=== PATIENT | female | born 1940 | race African-American/Black ===

== ENCOUNTER → 2019-02-28 | Outpatient (CLI) | payer MEDICARE ==
[2019-02-28 12:59] LABS: HEMATOCRIT 41 % (35-52); HEMOGLOBIN 13.1 G/DL (11.5-16.0); MEAN CORPUSCULAR HEMOGLOBIN 33 PG (25-34); MEAN CORPUSCULAR HGB CONC 32 G/DL (32-36); MEAN CORPUSCULAR VOLUME 103 FL (80-99); WHITE BLOOD COUNT 3.5 10^3/uL (4.3-11.0)
[2019-02-28 13:00] LABS: BASOPHILS % (AUTO) 1 % (0-10); EOSINOPHILS # (AUTO) 0.2 10^3/uL (0.0-0.3); EOSINOPHILS % (AUTO) 5 % (0-10); LYMPHOCYTES # (AUTO) 1.1 X 10^3 (1.0-4.0); LYMPHOCYTES % (AUTO) 30 % (12-44); MEAN PLATELET VOLUME 10.6 FL (7.4-10.4); MONOCYTES # (AUTO) 0.5 X 10^3 (0.0-1.0); MONOCYTES % (AUTO) 13 % (0-12); NEUTROPHILS # (AUTO) 1.7 X 10^3 (1.8-7.8); NEUTROPHILS % (AUTO) 51 % (42-75); PLATELET COUNT 180 10^3/uL (130-400); RED CELL DISTRIBUTION WIDTH 15.5 % (10.0-14.5)
[2019-02-28 14:28] LABS: CREATININE SERUM 1.64 MG/DL (0.60-1.30); POTASSIUM 4.4 MMOL/L (3.6-5.0)
[2019-02-28 14:29] LABS: ALBUMIN 4.2 GM/DL (3.2-4.5); BILIRUBIN,TOTAL 0.9 MG/DL (0.1-1.0); CALCIUM 9.1 MG/DL (8.5-10.1); TOTAL PROTEIN 7.2 GM/DL (6.4-8.2)
[2019-03-02 17:19] LABS: IMMUNOFIX PATH REPORT NUMBER Complete (Complete)
== END ==
LOC: LAB FS 12:01
PROVIDERS: ATTEND Internal Medicine Hematology & Oncology
DX: C90.01 Multiple myeloma in remission (principal)
CPT/HCPCS: 36415; 80053; 83615; 83883; 84155; 84165; 85025; 86334

== ENCOUNTER → 2019-08-16 | Outpatient (CLI) | payer MEDICARE, OTHER ==
[2019-08-16 12:19] LABS: HEMATOCRIT 38 % (35-52); HEMOGLOBIN 12.3 G/DL (11.5-16.0); MEAN CORPUSCULAR HEMOGLOBIN 34 PG (25-34); WHITE BLOOD COUNT 2.9 10^3/uL (4.3-11.0)
[2019-08-16 12:20] LABS: MEAN CORPUSCULAR HGB CONC 33 G/DL (32-36); MEAN CORPUSCULAR VOLUME 103 FL (80-99); PLATELET COUNT 201 10^3/uL (130-400); RED CELL DISTRIBUTION WIDTH 15.7 % (10.0-14.5)
[2019-08-16 12:21] LABS: BASOPHILS % (AUTO) 1 % (0-10); EOSINOPHILS # (AUTO) 0.1 10^3/uL (0.0-0.3); EOSINOPHILS % (AUTO) 4 % (0-10); LYMPHOCYTES % (AUTO) 33 % (12-44); MEAN PLATELET VOLUME 10.4 FL (7.4-10.4); MONOCYTES # (AUTO) 0.4 X 10^3 (0.0-1.0); MONOCYTES % (AUTO) 15 % (0-12); NEUTROPHILS # (AUTO) 1.4 X 10^3 (1.8-7.8); NEUTROPHILS % (AUTO) 47 % (42-75)
[2019-08-16 13:32] LABS: BILIRUBIN,TOTAL 0.5 MG/DL (0.1-1.0); CALCIUM 8.7 MG/DL (8.5-10.1); CREATININE SERUM 1.63 MG/DL (0.60-1.30); POTASSIUM 4.7 MMOL/L (3.6-5.0)
[2019-08-16 13:33] LABS: ALBUMIN 3.9 GM/DL (3.2-4.5); TOTAL PROTEIN 6.5 GM/DL (6.4-8.2)
== END ==
LOC: LAB FS 10:31
PROVIDERS: ATTEND Internal Medicine Hematology & Oncology
DX: Z01.89 Encounter for other specified special examinations (principal)
CPT/HCPCS: 36415; 80053; 83883; 84155; 84165; 85025; 86334

== ENCOUNTER → 2019-11-15 | Outpatient (CLI) | payer MEDICARE, OTHER ==
[2019-11-15 10:53] LABS: BASOPHILS % (AUTO) 1 % (0-10); HEMATOCRIT 38 % (35-52); HEMOGLOBIN 12.5 G/DL (11.5-16.0); LYMPHOCYTES % (AUTO) 24 % (12-44); MEAN CORPUSCULAR HEMOGLOBIN 34 PG (25-34); MEAN CORPUSCULAR HGB CONC 33 G/DL (32-36); MEAN CORPUSCULAR VOLUME 102 FL (80-99); MEAN PLATELET VOLUME 10.8 FL (7.4-10.4); MONOCYTES % (AUTO) 15 % (0-12); NEUTROPHILS % (AUTO) 57 % (42-75); PLATELET COUNT 158 10^3/uL (130-400); RED CELL DISTRIBUTION WIDTH 15.6 % (10.0-14.5)
[2019-11-15 10:54] LABS: EOSINOPHILS # (AUTO) 0.1 10^3/uL (0.0-0.3); EOSINOPHILS % (AUTO) 3 % (0-10); MONOCYTES # (AUTO) 0.6 X 10^3 (0.0-1.0); NEUTROPHILS # (AUTO) 2.3 X 10^3 (1.8-7.8)
[2019-11-15 11:29] LABS: POTASSIUM 4.1 MMOL/L (3.6-5.0)
[2019-11-15 11:30] LABS: BILIRUBIN,TOTAL 0.6 MG/DL (0.1-1.0); CREATININE SERUM 1.6 MG/DL (0.60-1.30); TOTAL PROTEIN 6.6 GM/DL (6.4-8.2)
== END ==
LOC: LAB FS 09:18
PROVIDERS: ATTEND Internal Medicine Hematology & Oncology
DX: Z01.89 Encounter for other specified special examinations (principal)
CPT/HCPCS: 36415; 80053; 83615; 83883; 84155; 84165; 85025; 86334

== ENCOUNTER → 2020-07-30 | Outpatient (CLI) | payer MEDICARE, OTHER ==
--- NOTE | 2020-07-30 16:33 | Diagnostic Imaging Report ---
INDICATION: Fall with right hip pain. TIME OF EXAM: 02:54 p.m. TECHNIQUE: Two views of the right hip were obtained. FINDINGS: Femoroacetabular alignment is normal. Joint spaces are fairly well maintained. No fractures are seen. Right-sided rami are intact. IMPRESSION: No acute bony abnormality is detected. Dictated by: Dictated on workstation # [id number]
== END ==
LOC: RAD FS 14:32
PROVIDERS: ATTEND Nurse Practitioner Family
DX: M25.551 Pain in right hip (principal)
CPT/HCPCS: 73502

== ENCOUNTER → 2021-03-31 | Outpatient (CLI) | payer MEDICARE, OTHER ==
[2021-03-31 14:58] LABS: WHITE BLOOD COUNT 3.1 10^3/uL (4.3-11.0)
[2021-03-31 14:59] LABS: BASOPHILS % (AUTO) 1 % (0-10); EOSINOPHILS % (AUTO) 6 % (0-10); HEMATOCRIT 38 % (35-52); HEMOGLOBIN 12.4 g/dL (11.5-16.0); LYMPHOCYTES % (AUTO) 26 % (12-44); MEAN CORPUSCULAR HEMOGLOBIN 33 pg (25-34); MEAN CORPUSCULAR HGB CONC 32 g/dL (32-36); MEAN CORPUSCULAR VOLUME 102 fL (80-99); MEAN PLATELET VOLUME 10.8 fL (9.0-12.2); MONOCYTES % (AUTO) 8 % (0-12); NEUTROPHILS % (AUTO) 60 % (42-75); PLATELET COUNT 219 10^3/uL (130-400)
[2021-03-31 15:00] LABS: EOSINOPHILS # (AUTO) 0.2 10^3/uL (0.0-0.3); LYMPHOCYTES # (AUTO) 0.8 X 10^3 (1.0-4.0); MONOCYTES # (AUTO) 0.2 X 10^3 (0.0-1.0); NEUTROPHILS # (AUTO) 1.8 X 10^3 (1.8-7.8)
[2021-03-31 15:16] LABS: ALBUMIN 4.2 GM/DL (3.2-4.5); BILIRUBIN,TOTAL 0.5 MG/DL (0.1-1.0); CALCIUM 8.9 MG/DL (8.5-10.1); CREATININE SERUM 1.66 MG/DL (0.60-1.30); TOTAL PROTEIN 6.9 GM/DL (6.4-8.2)
== END ==
LOC: LAB FS 12:59
PROVIDERS: ATTEND Internal Medicine Hematology & Oncology
DX: C90.01 Multiple myeloma in remission (principal)
CPT/HCPCS: 36415; 80053; 83615; 83883; 84155; 84165; 85025; 86334

== ENCOUNTER 2021-04-06 08:40 | Emergency (ER) | payer MEDICARE, OTHER ==
[~2021-04-06] VITALS: Ht 154.9 cm; Wt 63.9 kg
--- NOTE | 2021-04-06 09:05 | ED Cough/URI ---
General Chief Complaint: Cough/Cold/Flu Symptoms Stated Complaint: COUGH Nursing Triage Note: PATIENT PRESENTS TO THE ED WITH C/O COUGH AND RUNNING NOSE. SHE REPORTS HER SYMPTOMS STARTED 2 DAYS AGO. PATIENT DENIES FEVER, SHORTNESS OF BREATH, DIARRHEA, NAUSEA, OR VOMITING. Source: patient History of Present Illness Date Seen by Provider: Apr 06, 2021 Time Seen by Provider: 08:42 Initial Comments 80 yo female presenting to the ED with complaint of runny nose and cough productive of clear colored sputum. She denies fever, chills, shortness of breath, nausea, vomiting, diarrhea. She does not think she has been exposed to any ill contacts. She does have Multiple Myeloma and is taking medicine for that under direction of Oncologist from [facility]. She denies swelling in her legs. She has had no burning with urination. She denies headache, chest pain, abdominal pain. She thinks her symptoms started on Wednesday. Severity/Quality: mild, productive cough (clear phlegm) Prior Episodes/Possible Cause: unknown cause Associated Symptoms: cough, nasal congestion, nasal drainage Allergies and Home Medications Allergies Coded Allergies: No Known Drug Allergies (Unverified , 04/06/21) Patient Home Medication List Home Medication List Reviewed: Yes Fluticasone Propionate (Fluticasone Propionate) 16 Gm Emmett.susp, 1 SPRAY NSEACH BID Prescribed by: MARILEE MARROQUIN on 04/06/21 1008 Review of Systems Review of Systems Constitutional: No chills, No fever, No malaise EENTM: nose congestion; No ear discharge, No ear pain, No blurred vision, No hoarseness, No epistaxis Respiratory: see HPI Cardiovascular: see HPI; No chest pain, No edema, No palpitations Gastrointestinal: see HPI; No abdominal pain, No diarrhea, No nausea, No vomiting Genitourinary: No dysuria Musculoskeletal: no symptoms reported Skin: no symptoms reported Psychiatric/Neurological: Denies Headache Past Tyhcdwu-Ojxhhk-Iqmqfw Hx Patient Social History Tobacco Use?: No Use of E-Cig and/or Vaping dev: No Substance use?: No Alcohol Use?: No Pt feels they are or have been: No Immunizations Up To Date First/Initial COVID19 Vaccinat: SEPTEMBER 2020 Second COVID19 Vaccination Ruddy: SEPTEMBER 2020 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 oz. kg; 26.00 BMI Method: General Appearance: WD/WN, no apparent distress HEENT: PERRL/EOMI, pharynx normal Neck: non-tender, full range of motion, supple, normal inspection Respiratory: chest non-tender, lungs clear, normal breath sounds, no respiratory distress, no accessory muscle use Cardiovascular: normal peripheral pulses, regular rate, rhythm Gastrointestinal: normal bowel sounds, non tender, soft, no pulsatile mass Extremities: normal range of motion, non-tender, normal capillary refill Neurologic/Psychiatric: alert, oriented x 3 Skin: normal color, warm/dry Focused Exam Lactate Level 04/06/21 08:55: Lactic Acid Level 1.67 Lactic Acid Level Laboratory Tests Test 04/06/21 08:55 Lactic Acid Level 1.67 MMOL/L (0.50-2.00) Progress/Results/Core Measures Suspected Sepsis SIRS Temperature: Pulse: 74 Respiratory Rate: 18 Laboratory Tests 04/06/21 08:55: White Blood Count 4.5 Blood Pressure 135 /66 Mean: 89 04/06/21 08:55: Lactic Acid Level 1.67 Laboratory Tests 04/06/21 08:55: Creatinine 1.40H, INR Comment 1.0, Platelet Count 172, Total Bilirubin 0.8 Results/Orders Lab Results Laboratory Tests Test 04/06/21 08:55 04/06/21 09:02 Range/Units White Blood Count 4.5 4.3-11.0 10^3/uL Red Blood Count 3.77 L 3.80-5.11 10^6/uL Hemoglobin 12.5 11.5-16.0 g/dL Hematocrit 38 35-52 % Mean Corpuscular Volume 100 H 80-99 fL Mean Corpuscular Hemoglobin 33 25-34 pg Mean Corpuscular Hemoglobin Concent 33 32-36 g/dL Red Cell Distribution Width 15.5 H 10.0-14.5 % Platelet Count 172 130-400 10^3/uL Mean Platelet Volume 10.4 9.0-12.2 fL Immature Granulocyte % (Auto) 0 % Neutrophils (%) (Auto) 73 42-75 % Lymphocytes (%) (Auto) 12 12-44 % Monocytes (%) (Auto) 13 H 0-12 % Eosinophils (%) (Auto) 1 0-10 % Basophils (%) (Auto) 1 0-10 % Neutrophils # (Auto) 3.3 1.8-7.8 X 10^3 Lymphocytes # (Auto) 0.5 L 1.0-4.0 X 10^3 Monocytes # (Auto) 0.6 0.0-1.0 X 10^3 Eosinophils # (Auto) 0.1 0.0-0.3 10^3/uL Basophils # (Auto) 0.0 0.0-0.1 10^3/uL Immature Granulocyte # (Auto) 0.0 0.0-0.1 10^3/uL Prothrombin Time 13.1 12.2-14.7 SEC INR Comment 1.0 0.8-1.4 Activated Partial Thromboplast Time 31 24-35 SEC Sodium Level 142 135-145 MMOL/L Potassium Level 3.8 3.6-5.0 MMOL/L Chloride Level 100 98-107 MMOL/L Carbon Dioxide Level 29 21-32 MMOL/L Anion Gap 13 5-14 MMOL/L Blood Urea Nitrogen 11 7-18 MG/DL Creatinine 1.40 H 0.60-1.30 MG/DL Estimat Glomerular Filtration Rate 44 BUN/Creatinine Ratio 8 Glucose Level 109 H 70-105 MG/DL Lactic Acid Level 1.67 0.50-2.00 MMOL/L Calcium Level 8.8 8.5-10.1 MG/DL Corrected Calcium 8.8 8.5-10.1 MG/DL Total Bilirubin 0.8 0.1-1.0 MG/DL Aspartate Amino Transf (AST/SGOT) 16 5-34 U/L Alanine Aminotransferase (ALT/SGPT) 10 0-55 U/L Alkaline Phosphatase 100 40-136 U/L Troponin I < 0.30 <0.30 NG/ML C-Reactive Protein 4.82 H <0.50 MG/DL Total Protein 6.9 6.4-8.2 GM/DL Albumin 4.0 3.2-4.5 GM/DL Influenza Type A Antigen NEGATIVE NEGATIVE Influenza Type B Antigen NEGATIVE NEGATIVE My Orders Orders - MARILEE MARROQUIN MD Monitor-Rhythm Ecg Trace Only (04/06/21 08:55) Ed Iv/Invasive Line Start (04/06/21 08:55) Cbc With Automated Diff (04/06/21 08:55) Comprehensive Metabolic Panel (04/06/21 08:55) Crp Fs (04/06/21 08:55) Troponin I Fs (04/06/21 08:55) Protime With Inr (04/06/21 08:55) Partial Thromboplastin Time (04/06/21 08:55) Ekg Tracing (04/06/21 08:55) Blood Culture (04/06/21 08:55) Influenza A & B Antigens (04/06/21 08:55) Coronavirus Sars-Cov-2 So 2019 (04/06/21 08:55) Lactic Acid Analyzer (04/06/21 08:55) Chest 1 View Ap/Pa Only (04/06/21 08:58) Vital Signs/I&O 04/06/21 04/06/21 08:40 10:37 Temp 36.4 36.4 Pulse 74 66 Resp 18 18 B/P (MAP) 135/66 (89) 127/62 Pulse Ox 95 93 O2 Delivery Room Air Room Air Capillary Refill : Less Than 3 Seconds Blood Pressure Mean: 89 Progress Note #1: Progress Note Pt states she really did not want to be here but came in because she was worried she might have COVID. She is requesting testing to check for infection from COVID. Will check basic labs, blood cultures, lactic acid, chest xray, influenza and Covid. Advised pt that we do not have rapid COVID test in the ED but can send swab off to the lab to be run. The other labs and Influenza will be done today and know results in about an hour. Differential diagnosis includes COVID, Influenza, Common Cold, pneumonia, allergies, sinusitis Progress Note #2: Time: 09:28 Progress Note CBC appears stable from recent labs earlier this week. She has no acute significant abnormality on ECG or CXR. Her Influenza swab is negative. Awaiting CMP. Progress Note #3: Time: 09:52 Progress Note Chemistry stable with improved Cr from 03/31. Counseled pt on symptomatic treatment and that she would have COVID results usually within a day. Try plain Mucinex or plain Robitussin for cough, Nasal steroid spray, antihistamine such as claritin or zyrtec for congestion. Check with pcp or oncology for further concerns. ECG Initial ECG Impression Date: Apr 06, 2021 Initial ECG Impression Time: 09:02 Initial ECG Rate: 70 Initial ECG Rhythm: Normal Sinus Initial ECG Comparisson: No Previous ECG Available Comment Normal sinus rhythm with a heart rate of 70 bpm. DC interval [address] elevation. QT interval 411 ms with a QTc interval 444 ms. There is no prior tracing available for comparison. Diagnostic Imaging Diagonstic Imaging: Xray Plain Films/CT/US/NM/MRI: chest Comments NAME: RHONA STERN [facility] REC#: [id number] PT STATUS: REG ER : 1940 PHYSICIAN: MARILEE MARROQUIN MD ADMIT DATE: 04/06/21/ER FS Draft Date of Exam:04/06/21 CHEST 1 VIEW AP/PA ONLY Indication: Dyspnea, cough and congestion. Comparison: 08/23/2009. Discussion: Single portable upright view of the chest was obtained. Left-sided port is stable. Borderline cardiomegaly is stable. No consolidation, pleural fluid, or pneumothorax. No osseous abnormality. Impression: 1. No acute cardiopulmonary process. Dictated on workstation # [id number] Dict: 04/06/21915 Trans: 04/06/21 0917 CV [id number] Interpreted by: MARIAMA MORRIS MD Electronically signed by: Reviewed: Reviewed by Me Departure Impression Primary Impression: Upper respiratory infection with cough and congestion Additional Impression: Person under investigation for COVID-19 Disposition: HOME, SELF-CARE Condition: Stable Departure-Patient Inst. Decision time for Depature: 10:00 Referrals: HUGH DEMPSEY APRN (PCP) Primary Care Physician [facility] (Family) Primary Care Physician Patient Instructions: COVID-19 After You Have Been Vaccinated, Upper Respiratory Infection ED, Cough, Adult ED Add. Discharge Instructions: You should self quarantine and isolate until you know about your test results for COVID. These should be back within 24-48 hours. Try nasal steroid spray for congestion and drainage. Plain Mucinex OR Plain Robitussin for cough and congestion. You could try taking Claritin or Zyrtec for an antihistamine to help with congestion. Check back with your provider or oncologist for further concerns. All discharge instructions reviewed with patient and/or family. Voiced understanding. Scripts Fluticasone Propionate (Fluticasone Propionate) 16 Gm Emmett.susp 1 SPRAY NSEACH BID for 14 Days, #1 EA 0 Refills Prov: MARILEE MARROQUIN MD 04/06/21 MARILEE MARROQUIN MD Apr 06, 2021 09:05
[2021-04-06 09:08] LABS: BASOPHILS % (AUTO) 1 % (0-10); EOSINOPHILS # (AUTO) 0.1 10^3/uL (0.0-0.3); EOSINOPHILS % (AUTO) 1 % (0-10); HEMATOCRIT 38 % (35-52); HEMOGLOBIN 12.5 g/dL (11.5-16.0); LYMPHOCYTES # (AUTO) 0.5 X 10^3 (1.0-4.0); LYMPHOCYTES % (AUTO) 12 % (12-44); MEAN CORPUSCULAR HEMOGLOBIN 33 pg (25-34); MEAN CORPUSCULAR HGB CONC 33 g/dL (32-36); MEAN CORPUSCULAR VOLUME 100 fL (80-99); MEAN PLATELET VOLUME 10.4 fL (9.0-12.2); MONOCYTES # (AUTO) 0.6 X 10^3 (0.0-1.0); MONOCYTES % (AUTO) 13 % (0-12); NEUTROPHILS # (AUTO) 3.3 X 10^3 (1.8-7.8); NEUTROPHILS % (AUTO) 73 % (42-75); PLATELET COUNT 172 10^3/uL (130-400); WHITE BLOOD COUNT 4.5 10^3/uL (4.3-11.0)
--- NOTE | 2021-04-06 09:17 | Diagnostic Imaging Report ---
Indication: Dyspnea, cough and congestion. Comparison: 08/23/2009. Discussion: Single portable upright view of the chest was obtained. Left-sided port is stable. Borderline cardiomegaly is stable. No consolidation, pleural fluid, or pneumothorax. No osseous abnormality. Impression: 1. No acute cardiopulmonary process. Dictated by: Dictated on workstation # [id number]
[2021-04-06 09:21] LABS: PROTHROMBIN TIME PATIENT 13.1 SEC (12.2-14.7)
[2021-04-06 09:36] LABS: ALANINE AMINOTRANSFERASE 10 U/L (0-55); ALKALINE PHOSPHATASE 100 U/L (40-136); BILIRUBIN,TOTAL 0.8 MG/DL (0.1-1.0); BUN/CREATININE RATIO 8; CALCIUM 8.8 MG/DL (8.5-10.1); CARBON DIOXIDE 29 MMOL/L (21-32); CHLORIDE 100 MMOL/L (98-107); GFR ESTIMATED 44; GLUCOSE 109 MG/DL (70-105); POTASSIUM 3.8 MMOL/L (3.6-5.0); SODIUM 142 MMOL/L (135-145)
[2021-04-06 09:37] LABS: TOTAL PROTEIN 6.9 GM/DL (6.4-8.2)
[2021-04-06] MEDS ORDERED: FLUT16SP22 NSEACH (10:08)
[2021-04-06 10:37] VITALS: BP 127/62
== END 2021-04-06 10:15 | disposition home or self-care (01) ==
LOC: EDUNIT# 08:40 → ER FS 08:41
DX: J06.9 Acute upper respiratory infection, unspecified (principal); R05.9 Cough, unspecified; R09.81 Nasal congestion; Z20.822 Contact with and (suspected) exposure to COVID-19
CPT/HCPCS: 36415; 71045; 80053; 83605; 84484; 85025; 85610; 85730; 86141; 87040; 87635; 87804; 93005

== ENCOUNTER 2022-03-17 18:58 | Emergency (ER) | payer MEDICARE, OTHER ==
[~2022-03-17] VITALS: Ht 154.9 cm; Wt 61.2 kg
[~2022-03-17 18:58] MED LIST: FLUT16SP22 NSEACH
--- NOTE | 2022-03-17 20:06 | Diagnostic Imaging Report ---
INDICATION: Fall with head and neck pain. TECHNIQUE: Multiple contiguous axial images were obtained through the brain and cervical spine without the use of intravenous contrast. Sagittal and coronal reformations through the cervical spine were then performed. Auto Exposure Controls were utilized during the CT exam to meet ALARA standards for radiation dose reduction. There is no prior cervical spine or head CT for comparison. CT brain findings: There were no extra-axial fluid collections. No intracranial hemorrhage. No intracranial mass or mass effect. No midline shift. The ventricles are normal in size and position. There were no focal parenchymal abnormalities in the brain. Calvarial windows are unremarkable. CT cervical spine findings: There is no evidence of cervical spine fracture. There is no subluxation or malalignment. There is diffuse facet degenerative change. There is disc space narrowing with osteophyte formation at essentially all levels. IMPRESSION: CT brain was unremarkable. CT cervical spine shows extensive degenerative changes with no acute fracture or subluxation. Dictated by: Dictated on workstation # [id number]
--- NOTE | 2022-03-17 20:08 | Diagnostic Imaging Report ---
INDICATION: Fall with pain in chest. TECHNIQUE: Multiple contiguous axial images were obtained through the chest without the use of intravenous contrast. Auto Exposure Controls were utilized during the CT exam to meet ALARA standards for radiation dose reduction. There is no prior chest CT for comparison. Port-A-Cath is seen over the left chest wall with its catheter tip in the low SVC. There are no enlarged mediastinal or hilar nodes. There are no enlarged axillary nodes or chest wall masses. There is no pleural or pericardial fluid. Visualized portions of the upper abdomen demonstrate multiple right renal cysts. There is no pneumothorax. Lung parenchymal windows demonstrate a right upper lobe pulmonary nodule measuring about 6 mm, best seen on image 60 of series 5. There is no pulmonary consolidation or contusion. There is some linear scarring in the right base. Bony windows in the chest show no overt acute abnormality. There are old compression deformities in the thoracic spine. IMPRESSION: No pulmonary parenchymal infiltrate or contusion. No pneumothorax or pleural fluid. Port-A-Cath in place as above. There is a 6 cm pulmonary nodule in the right upper lobe as described above, we do not have previous imaging. Suggest a follow-up study in 3-6 months for further evaluation. Dictated by: Dictated on workstation # [id number]
[2022-03-17 20:09] LABS: HEMATOCRIT 37 % (35-52); HEMOGLOBIN 12.5 g/dL (11.5-16.0); MEAN CORPUSCULAR HEMOGLOBIN 33 pg (25-34); MEAN CORPUSCULAR HGB CONC 33 g/dL (32-36); MEAN CORPUSCULAR VOLUME 97 fL (80-99)
[2022-03-17 20:10] LABS: BASOPHILS % (AUTO) 1 % (0-10); EOSINOPHILS # (AUTO) 0.1 10^3/uL (0.0-0.3); EOSINOPHILS % (AUTO) 2 % (0-10); LYMPHOCYTES # (AUTO) 1.3 X 10^3 (1.0-4.0); LYMPHOCYTES % (AUTO) 27 % (12-44); MEAN PLATELET VOLUME 10.4 fL (9.0-12.2); MONOCYTES # (AUTO) 0.6 X 10^3 (0.0-1.0); MONOCYTES % (AUTO) 13 % (0-12); NEUTROPHILS # (AUTO) 2.9 X 10^3 (1.8-7.8); NEUTROPHILS % (AUTO) 58 % (42-75); PLATELET COUNT 189 10^3/uL (130-400)
--- NOTE | 2022-03-17 20:15 | Diagnostic Imaging Report ---
INDICATION: Pelvic and left hip pain AP pelvis and AP and oblique views of the left hip are obtained. No fracture or acute bony abnormality is seen. There are mild degenerative findings of both hips. IMPRESSION: No acute abnormality of the bony pelvis. Dictated by: Dictated on workstation # [id number]
[2022-03-17 20:24] LABS: CREATININE SERUM 1.56 MG/DL (0.60-1.30); POTASSIUM 4.2 MMOL/L (3.6-5.0)
[2022-03-17 20:25] LABS: ALBUMIN 3.9 GM/DL (3.2-4.5); BILIRUBIN,TOTAL 0.6 MG/DL (0.1-1.0); CALCIUM 9.3 MG/DL (8.5-10.1); MAGNESIUM 1.6 MG/DL (1.6-2.4); TOTAL PROTEIN 7.2 GM/DL (6.4-8.2)
--- NOTE | 2022-03-17 20:37 | ED General ---
General Chief Complaint: Trauma-Non Activation Stated Complaint: FALL Nursing Triage Note: Patient arrives via EMS with complaints of left sided pain. Patient states that she fell off of her porch approximately 30 minutes prior to arrival. Patient reports tripping over a broom. Patient states she fell off of the porch, hit the stairs with her left side and landed on a concrete sidewalk. Patient does take daily ASA. Patient also has a port on her left chest and states that she thinks she hit it when she fell because it is hurting. Patient is complaining of left shoulder pain, left rib pain and left hip pain. Patient was ambulatory prior to arrival to the ER. Patient denies loss of consciouness but did hit her head when she fell. Patient reports that she felt "fuzzy" and "disoriented" after she fell but feels fine now other than pain. Source of Information: Patient, Old Records Exam Limitations: No Limitations History of Present Illness Date Seen by Provider: Mar 17, 2022 Time Seen by Provider: 19:11 Initial Comments This 81-year-old woman presents to the emergency room by EMS after tripping and falling on her porch. She told nursing staff she thought she tripped on her bro om. She told this provider she tripped on her own feet. She denied any prodrome of lightheadedness, dizziness, weakness, chest pain, or shortness of breath initially. However, as we continued to speak with her, she admits that she has been having a sensation of disequilibrium or dysphoria intermittently for several months. She admits to feeling that way earlier today. She does not feel that way now. No focal deficits were initially identified on exam. She complains of pain in the left posterior chest wall, left shoulder, left hip, and neck. She felt "fuzzy" after hitting her head. She has a small abrasion on the posterior aspect of her left ear where she hit her head. C-collar was applied. She is in remission from multiple myeloma. She has a port in her left chest and she is a bit tender around the port. She reports her primary care provider is Hugh Dempsey with [facility]. Her oncologist is Dr. Brar (spelling?) in [place]. Allergies and Home Medications Allergies Coded Allergies: No Known Drug Allergies (Unverified , 04/06/21) Patient Home Medication List Home Medication List Reviewed: Yes Fluticasone Propionate (Fluticasone Propionate) 16 Gm [place].susp, 1 SPRAY NSEACH BID Prescribed by: MARILEE MARROQUIN on 04/06/21 1008 Review of Systems Review of Systems Constitutional: no symptoms reported EENTM: see HPI Respiratory: no symptoms reported Cardiovascular: see HPI Gastrointestinal: no symptoms reported Genitourinary: no symptoms reported : No Musculoskeletal: no symptoms reported Skin: see HPI Psychiatric/Neurological: See HPI Hematologic/Lymphatic: No Symptoms Reported Immunological/Allergic: no symptoms reported Past Zhgwzsb-Djolwj-Alixjl Hx Patient Social History Tobacco Use?: No Substance use?: No Alcohol Use?: No Pt feels they are or have been: No Immunizations Up To Date First/Initial COVID19 Vaccinat: SEPTEMBER 2020 Second COVID19 Vaccination Ruddy: SEPTEMBER 2020 COVID19 Vaccine Payable Manager: Zhou Past Medical History Surgery/Hospitalization HX: MULTIPLE MYELOMA Surgeries: Yes (Port) Respiratory: No Cardiac: No Neurological: No : No Reproductive Disorders: No Gastrointestinal: No Musculoskeletal: No Endocrine: No HEENT: No Cancer: No Psychosocial: No Integumentary: No Physical Exam Vital Signs Vital Signs - First Documented Capillary Refill : Less Than 3 Seconds Height, Weight, BMI Height: '" Weight: lbs. oz. kg; 25.00 BMI Method: General Appearance: No Apparent Distress, WD/WN HEENT: PERRL/EOMI, Normal ENT Inspection, Pharynx Normal, Other (Minor abrasion on the posterior left ear) Neck: Normal Inspection, Other (Tenderness posteriorly along the cervical spine) Respiratory: Lungs Clear, Normal Breath Sounds, No Accessory Muscle Use, Other (Left posterior chest wall tender to palpation) Cardiovascular: Regular Rate, Rhythm, No Edema, No Murmur Gastrointestinal: Normal Bowel Sounds, Non Tender, Soft Back: Normal Inspection Extremity: Normal Inspection, Normal Range of Motion, Other (No pain with rotation of the hips. Minor tenderness on the left lateral hip) Neurologic/Psychiatric: Alert, Oriented x3, No Motor/Sensory Deficits, Normal Mood/Affect, hearing care professional II-XII Norm as Tested Skin: Normal Color, Warm/Dry Progress/Results/Core Measures Suspected Sepsis Recent Fever Within 48 Hours: No Infection Criteria Present: None New/Unexplained Altered Menta: No SIRS Temperature: Pulse: 88 Respiratory Rate: 16 Laboratory Tests 9/13/22 19:56: White Blood Count 5.0 Blood Pressure 126 /98 Mean: 107 Laboratory Tests 03/17/22 19:56: Creatinine 1.56H, Platelet Count 189, Total Bilirubin 0.6 Results/Orders Lab Results Laboratory Tests Test 03/17/22 19:56 03/17/22 22:17 Range/Units White Blood Count 5.0 4.3-11.0 10^3/uL Red Blood Count 3.84 3.80-5.11 10^6/uL Hemoglobin 12.5 11.5-16.0 g/dL Hematocrit 37 35-52 % Mean Corpuscular Volume 97 80-99 fL Mean Corpuscular Hemoglobin 33 25-34 pg Mean Corpuscular Hemoglobin Concent 33 32-36 g/dL Red Cell Distribution Width 16.6 H 10.0-14.5 % Platelet Count 189 130-400 10^3/uL Mean Platelet Volume 10.4 9.0-12.2 fL Neutrophils (%) (Auto) 58 42-75 % Lymphocytes (%) (Auto) 27 12-44 % Monocytes (%) (Auto) 13 H 0-12 % Eosinophils (%) (Auto) 2 0-10 % Basophils (%) (Auto) 1 0-10 % Neutrophils # (Auto) 2.9 1.8-7.8 X 10^3 Lymphocytes # (Auto) 1.3 1.0-4.0 X 10^3 Monocytes # (Auto) 0.6 0.0-1.0 X 10^3 Eosinophils # (Auto) 0.1 0.0-0.3 10^3/uL Basophils # (Auto) 0.0 0.0-0.1 10^3/uL Sodium Level 140 135-145 MMOL/L Potassium Level 4.2 3.6-5.0 MMOL/L Chloride Level 100 98-107 MMOL/L Carbon Dioxide Level 28 21-32 MMOL/L Anion Gap 12 5-14 MMOL/L Blood Urea Nitrogen 21 H 7-18 MG/DL Creatinine 1.56 H 0.60-1.30 MG/DL Estimat Glomerular Filtration Rate 34 BUN/Creatinine Ratio 13 Glucose Level 109 H 70-105 MG/DL Calcium Level 9.3 8.5-10.1 MG/DL Corrected Calcium 9.4 8.5-10.1 MG/DL Magnesium Level 1.6 1.6-2.4 MG/DL Total Bilirubin 0.6 0.1-1.0 MG/DL Aspartate Amino Transf (AST/SGOT) 21 5-34 U/L Alanine Aminotransferase (ALT/SGPT) 14 0-55 U/L Alkaline Phosphatase 122 40-136 U/L Total Protein 7.2 6.4-8.2 GM/DL Albumin 3.9 3.2-4.5 GM/DL Urine Color PALE YELLOW Urine Clarity CLEAR Urine pH 7.0 5-9 Urine Specific [place] 1.010 L 1.016-1.022 Urine Protein NEGATIVE NEGATIVE Urine Glucose (UA) NEGATIVE NEGATIVE Urine Ketones NEGATIVE NEGATIVE Urine Nitrite NEGATIVE NEGATIVE Urine Bilirubin NEGATIVE NEGATIVE Urine Urobilinogen 0.2 < = 1.0 MG/DL Urine Leukocyte Esterase NEGATIVE NEGATIVE Urine RBC (Auto) NEGATIVE NEGATIVE Urine RBC NONE /HPF Urine WBC RARE /HPF Urine Squamous Epithelial Cells RARE /HPF Urine Crystals NONE /LPF Urine Bacteria NEGATIVE /HPF Urine Casts NONE /LPF Urine Mucus SMALL H /LPF Urine Culture Indicated NO My Orders Orders - CAMILO AGGARWAL MD Ct Head/Cervical Spine Wo (03/17/22 19:11) Ct Chest Wo (03/17/22 19:21) Ua Culture If Indicated (03/17/22 19:22) Pelvis With Left Hip 2-3 View (03/17/22 19:30) Cbc With Automated Diff (03/17/22 19:39) Comprehensive Metabolic Panel (03/17/22 19:39) Magnesium (03/17/22 19:39) Ed Iv/Invasive Line Start (03/17/22 19:39) Ekg Tracing (03/17/22 19:44) Monitor-Rhythm Ecg Trace Only (03/17/22 19:44) Orthostatic Vital Signs (Adult (03/17/22 20:41) Lactated Ringers (Lr 1000 Ml Iv Solution (03/17/22 20:45) Ns Iv 500 Ml (Sodium Chloride 0.9%) (03/17/22 23:30) Medications Given in ED Current Medications Medications Dose Ordered Sig/Shiraz Route Start Time Stop Time Status Last Admin Dose Admin Lactated Ringer's 1,000 ml @ 0 mls/hr Q0M ONCE IV 03/17/22 20:45 03/17/22 20:46 DC 03/17/22 20:53 999 MLS/HR Sodium Chloride 500 ml @ 0 mls/hr Q0M ONCE IV 03/17/22 23:30 03/17/22 23:31 DC 03/17/22 23:29 999 MLS/HR Vital Signs/I&O 03/17/22 03/17/22 03/17/22 03/17/22 18:59 18:59 20:48 22:06 Temp 37.1 37.1 Pulse 88 88 89 97 92 98 93 100 Resp 16 16 B/P (MAP) 126/98 (107) 126/98 (107) 111/50 (70) 125/36 (65) 120/71 (87) 145/71 (95) 85/70 (75) 131/67 (88) Pulse Ox 96 96 O2 Delivery Room Air Room Air 03/17/22 23:44 Resp 23 B/P (MAP) 137/63 Pulse Ox 96 O2 Delivery Room Air 03/18/22 00:00 Intake Total 1000 ml Balance 1000 ml Capillary Refill : Less Than 3 Seconds Blood Pressure Mean: 107 Progress Note #1: Time: 23:28 Progress Note Imaging studies of the head, C-spine, chest, pelvis, and left hip demonstrated no acute injuries. There was an incidental pulmonary nodule for which patient will be instructed to follow-up on an outpatient basis. She was found to be experiencing orthostatic hypotension. A liter of LR was infused. She was then able to get up out of the bed on her own and ambulate without assistance. She was slightly unsteady returning to the bed and grabbed a hold of the wall. An additional 500 mL of normal saline was ordered to give prior to discharge. Work-up was otherwise unremarkable. Patient is advised to contact her primary care provider tomorrow for prompt follow-up and review of medications. We were not able to review her medications as they are received by mail and she does not have a list. Progress Note #2: Progress Note Patient was improved and stable after a total of 1500 mL IV fluids. See discharge instructions for further discussion. Patient states she has a walker she can use at home to improve her safety with ambulation. ECG Initial ECG Impression Date: Mar 17, 2022 Initial ECG Impression Time: 20:04 Initial ECG Rate: 89 Initial ECG Rhythm: Normal Sinus Comment Artifact present. Normal sinus rhythm with no ST elevation or depression. No abnormal intervals or axis deviation. No ischemic findings. Diagnostic Imaging Diagonstic Imaging: CT Plain Films/CT/US/NM/MRI: c-spine, head Comments NAME: RHONA [facility] REC#: [id number] PT STATUS: REG ER : 1940 PHYSICIAN: CAMILO AGGARWAL MD ADMIT DATE: 03/17/22/ER FS Signed Date of Exam:03/17/22 CT HEAD/CERVICAL SPINE WO INDICATION: Fall with head and neck pain. TECHNIQUE: Multiple contiguous axial images were obtained through the brain and cervical spine without the use of intravenous contrast. Sagittal and coronal reformations through the cervical spine were then performed. Auto Exposure Controls were utilized during the CT exam to meet ALARA standards for radiation dose reduction. There is no prior cervical spine or head CT for comparison. CT brain findings: There were no extra-axial fluid collections. No intracranial hemorrhage. No intracranial mass or mass effect. No midline shift. The ventricles are normal in size and position. There were no focal parenchymal abnormalities in the brain. Calvarial windows are unremarkable. CT cervical spine findings: There is no evidence of cervical spine fracture. There is no subluxation or malalignment. There is diffuse facet degenerative change. There is disc space narrowing with osteophyte formation at essentially all levels. IMPRESSION: CT brain was unremarkable. CT cervical spine shows extensive degenerative changes with no acute fracture or subluxation. Dictated by: Dictated on workstation # [id number] Dict: 03/17/221954 Trans: 03/17/222017 [facility] [id number] Interpreted by: WALESKA GRANADOS MD Electronically signed by: WALESKA GRANADOS MD 03/17/222017 Diagonstic Imaging: CT Plain Films/CT/US/NM/MRI: chest Comments NAME: RHONA [facility] REC#: [id number] PT STATUS: REG ER : 1940 PHYSICIAN: CAMILO AGGARWAL MD ADMIT DATE: 03/17/22/ER FS Signed Date of Exam:03/17/22 CT CHEST WO INDICATION: Fall with pain in chest. TECHNIQUE: Multiple contiguous axial images were obtained through the chest without the use of intravenous contrast. Auto Exposure Controls were utilized during the CT exam to meet ALARA standards for radiation dose reduction. There is no prior chest CT for comparison. Port-A-Cath is seen over the left chest wall with its catheter tip in the low SVC. There are no enlarged mediastinal or hilar nodes. There are no enlarged axillary nodes or chest wall masses. There is no pleural or pericardial fluid. Visualized portions of the upper abdomen demonstrate multiple right renal cysts. There is no pneumothorax. Lung parenchymal windows demonstrate a right upper lobe pulmonary nodule measuring about 6 mm, best seen on image 60 of series 5. There is no pulmonary consolidation or contusion. There is some linear scarring in the right base. Bony windows in the chest show no overt acute abnormality. There are old compression deformities in the thoracic spine. IMPRESSION: No pulmonary parenchymal infiltrate or contusion. No pneumothorax or pleural fluid. Port-A-Cath in place as above. There is a 6 cm pulmonary nodule in the right upper lobe as described above, we do not have previous imaging. Suggest a follow-up study in 3-6 months for further evaluation. Dictated by: Dictated on workstation # [id number] Dict: 03/17/221956 Trans: 03/17/222017 [facility] [id number] Interpreted by: WALESKA GRANADOS MD Electronically signed by: WALESKA GRANADOS MD 03/17/222017 Diagonstic Imaging: Xray Plain Films/CT/US/NM/MRI: pelvis, hip Comments NAME: RHONA [facility] REC#: [id number] PT STATUS: REG ER : 1940 PHYSICIAN: CAMILO AGGARWAL MD ADMIT DATE: 03/17/22/ER FS Signed Date of Exam:03/17/22 PELVIS WITH LEFT HIP 2-3 VIEW INDICATION: Pelvic and left hip pain AP pelvis and AP and oblique views of the left hip are obtained. No fracture or acute bony abnormality is seen. There are mild degenerative findings of both hips. IMPRESSION: No acute abnormality of the bony pelvis. Dictated by: Dictated on workstation # [id number] Dict: 03/17/222001 Trans: 03/17/222017 [facility] [id number] Interpreted by: WALESKA GRANADOS MD Electronically signed by: WALESKA GRANADOS MD 03/17/222017 Departure Impression Primary Impression: Orthostatic hypotension Additional Impressions: Pulmonary nodule Fall on same level Qualified Codes: W18.30XA - Fall on same level, unspecified, initial encounter Chest wall pain Left hip pain Hypovolemia Generalized weakness Disposition: 01 HOME, SELF-CARE Condition: Improved Departure-Patient Inst. Decision time for Depature: 23:28 Referrals: HUGH DEMPSEY APRN (PCP) Primary Care Physician [facility] (Family) Primary Care Physician Patient Instructions: Orthostatic Hypotension Add. Discharge Instructions: You may take Tylenol (acetaminophen) up to 1000 mg every 6 hours as needed for pain. Drink plenty of clear liquids and to limit caffeine. Always take your time getting up from a sitting or lying position. Allow your body time to adjust before you stand or start walking. It would be francois to obtain a walker and have it available should you experience weakness or balance issues. Please follow-up with your primary care provider tomorrow morning. You need prompt follow-up in the clinic and a review of your medications and a recheck of your vital signs. Be sure your primary care provider checks your blood pressure in the standing position also. Return to the emergency room if you have worsening symptoms of weakness, lightheadedness, difficulty walking, etc. Call with questions or concerns. There is also a small pulmonary nodule incidentally noted on your CT scan. This should be imaged with a CT scan again in 3 to 6 months per the radiologist's recommendation. Please discuss this with your primary care provider. In addition, I suggest you discuss obtaining ultrasound studies of your carotid arteries in your neck if these studies have not been done within the past 5 years. Please discuss this with your doctor as well. All discharge instructions reviewed with patient and/or family. Voiced understanding. Copy Copies To 1: [facility]/CMAILO SHULTZ MD Mar 17, 2022 20:37
[2022-03-17] MEDS ORDERED: LACTATED RINGERS 1,000 ML IV ONE (20:45)
[2022-03-17 20:48] VITALS: BP_SYST 111; BP_SYST 120; BP_SYST 85; BP_DIAS 50; BP_DIAS 70; BP_DIAS 71
[2022-03-17 22:06] VITALS: BP_SYST 125; BP_SYST 131; BP_SYST 145; BP_DIAS 36; BP_DIAS 67; BP_DIAS 71
[2022-03-17 22:27] LABS: BILIRUBIN,URINE NEGATIVE (NEGATIVE); CLARITY,URINE CLEAR; GLUCOSE, URINE (UA) NEGATIVE (NEGATIVE); KETONES,URINE NEGATIVE (NEGATIVE); LEUKOCYTE ESTERASE ,URINE NEGATIVE (NEGATIVE); NITRITE,URINE NEGATIVE (NEGATIVE); PROTEIN,URINE NEGATIVE (NEGATIVE)
[2022-03-17 22:33] LABS: BACTERIA,URINE NEGATIVE /HPF; COLOR,URINE PALE YELLOW; SQUAMOUS EPITHELIAL CELL,UR RARE /HPF; WBC,URINE RARE /HPF
[2022-03-17] MEDS ORDERED: NS IV 500 ML 500 ML IV ONE (23:30)
[2022-03-17 23:44] VITALS: BP 137/63
== END 2022-03-18 00:04 | disposition home or self-care (01) ==
LOC: EDUNIT# 18:58 → ER FS 18:59
DX: S00.412A Abrasion of left ear, initial encounter (principal); M25.552 Pain in left hip; I95.1 Orthostatic hypotension; E86.1 Hypovolemia; R91.1 Solitary pulmonary nodule; M54.2 Cervicalgia; R07.89 Other chest pain; W01.198A Fall on same level from slipping, tripping and stumbling with subsequent striking against other object, initial encounter
CPT/HCPCS: 36415; 70450; 71250; 72125; 73502; 80053; 81000; 83735; 85025; 93005; 93041

== ENCOUNTER → 2022-10-06 | Outpatient (CLI) | payer MEDICARE, OTHER ==
--- NOTE | 2022-10-06 17:02 | Diagnostic Imaging Report ---
EXAMINATION: CT chest without contrast. TECHNIQUE: Multiple contiguous axial images were obtained through the chest without the use of intravenous contrast. All CT scans use one or more of the following dose optimizing techniques: automated exposure control, MA and/or KvP adjustment based on patient size and exam type or iterative reconstruction. HISTORY: History of multiple myeloma. Follow-up 6 mm nodule in the right upper lobe. COMPARISON: 03/17/2022. FINDINGS: The heart size is within normal limits. No pericardial effusion is present. A left port is visualized, the tip overlying the low SVC. There is no mediastinal, hilar, or axillary lymphadenopathy. A soft tissue nodule is seen in the right upper lobe measuring 0.8 cm, previously measuring 0.6 cm. No new pulmonary nodules are seen. Subsegmental atelectasis is seen in the right lower lobe. There are no focal areas of consolidation. No central endobronchial obstructing lesions are identified. There is no pleural effusion or pneumothorax. The osseous structures demonstrate no acute abnormalities. Chronic compression deformities are visualized at T7 and T8. Hemangioma is again noted in the T5 vertebral body. Limited views of the upper abdominal structures demonstrate no acute abnormalities. Cortical cysts are seen in the kidneys. Both adrenal glands are unremarkable. IMPRESSION: 1. Nodule in the right upper lobe measuring 0.8 cm, previously measuring 0.6 cm. Given the small increase in size, continued follow-up is recommended in 3-[address] Dictated by: Dictated on workstation # [id number]
== END ==
LOC: RAD FS 16:00
PROVIDERS: ATTEND Internal Medicine Hematology & Oncology
DX: C90.01 Multiple myeloma in remission (principal); R91.1 Solitary pulmonary nodule
CPT/HCPCS: 71250

== ENCOUNTER 2023-04-06 17:37 | Emergency (ER) | payer MEDICARE, OTHER ==
[2023-04-06] MEDS ORDERED: NS IV 1000 ML 1,000 ML IV STA (17:43)
--- NOTE | 2023-04-06 17:43 | ED General ---
General Stated Complaint: VOMITING,PASSED OUT History of Present Illness Date Seen by Provider: Apr 06, 2023 Time Seen by Provider: 17:43 Initial Comments 82-year-old female brought in by EMS following a syncopal event. Patient reports she has had nausea vomiting and diarrhea today. That she thinks she went to the kitchen and vomited and then she had a syncopal event she thinks it was probably 30 minutes that she was on the ground. When EMS arrived she was alert and orientated. Patient is under a lot of stress today as her son had yesterday. Patient was given 4 Zofran by EMS and started on IV fluids however the IV went bad and she did not receive any fluids just Zofran history was obtained from patient and EMS. Allergies and Home Medications Allergies Coded Allergies: No Known Drug Allergies (Unverified , 04/06/21) Patient Home Medication List Home Medication List Reviewed: Yes Fluticasone Propionate (Fluticasone Propionate) 16 Gm [place].susp, 1 SPRAY NSEACH BID Prescribed by: MARILEE MARROQUIN on 04/06/21 1008 Ondansetron (Ondansetron Odt) 4 Mg Tab.rapdis, 4 MG PO Q6H PRN for NAUSEA/VOMITING Prescribed by: JAMES AYON on 04/06/23 1903 Review of Systems Review of Systems Constitutional: no symptoms reported; No dizziness EENTM: no symptoms reported Respiratory: no symptoms reported Cardiovascular: syncope Gastrointestinal: diarrhea, nausea, vomiting Musculoskeletal: no symptoms reported Skin: no symptoms reported Psychiatric/Neurological: No Symptoms Reported Hematologic/Lymphatic: No Symptoms Reported Past [id number]-[id number]-Kgoczg Hx Immunizations Up To Date First/Initial COVID19 Vaccinat: SEPTEMBER 2020 Second COVID19 Vaccination Ruddy: SEPTEMBER 2020 Past Medical History Surgery/Hospitalization HX: MULTIPLE MYELOMA Surgeries: Yes ([place]) Respiratory: No Cardiac: No Neurological: No Reproductive Disorders: No Gastrointestinal: No Musculoskeletal: No Endocrine: No HEENT: No Cancer: No Psychosocial: No Integumentary: No Physical Exam Vital Signs Capillary Refill : Height, Weight, BMI Height: '" Weight: lbs. oz. kg; 25.00 BMI Method: General Appearance: No Apparent Distress Respiratory: Lungs Clear, Normal Breath Sounds Cardiovascular: Regular Rate, Rhythm, No Edema Extremity: Normal Capillary Refill Neurologic/Psychiatric: Alert, Oriented x3, No Motor/Sensory Deficits Progress/Results/Core Measures Suspected Sepsis SIRS Temperature: Pulse: Respiratory Rate: Laboratory Tests 04/06/23 17:43: White Blood Count 5.9 Blood Pressure / Mean: Laboratory Tests 04/06/23 17:43: Creatinine 1.31H, Platelet Count 149, Total Bilirubin 0.9 Results/Orders Lab Results Laboratory Tests Test 04/06/23 17:43 04/06/23 17:47 04/06/23 19:44 Range/Units White Blood Count 5.9 4.3-11.0 10^3/uL Red Blood Count 3.77 L 3.80-5.11 10^6/uL Hemoglobin 12.3 11.5-16.0 g/dL Hematocrit 37 35-52 % Mean Corpuscular Volume 99 80-99 fL Mean Corpuscular Hemoglobin 33 25-34 pg Mean Corpuscular Hemoglobin Concent 33 32-36 g/dL Red Cell Distribution Width 14.8 H 10.0-14.5 % Platelet Count 149 130-400 10^3/uL Mean Platelet Volume 10.0 9.0-12.2 fL Immature Granulocyte % (Auto) 0 % Neutrophils (%) (Auto) 67 42-75 % Lymphocytes (%) (Auto) 15 12-44 % Monocytes (%) (Auto) 15 H 0-12 % Eosinophils (%) (Auto) 2 0-10 % Basophils (%) (Auto) 1 0-10 % Neutrophils # (Auto) 4.0 1.8-7.8 10^3/uL Lymphocytes # (Auto) 0.9 L 1.0-4.0 10^3/uL Monocytes # (Auto) 0.9 0.0-1.0 10^3/uL Eosinophils # (Auto) 0.1 0.0-0.3 10^3/uL Basophils # (Auto) 0.0 0.0-0.1 10^3/uL Immature Granulocyte # (Auto) 0.0 0.0-0.1 10^3/uL Sodium Level 136 135-145 MMOL/L Potassium Level 4.4 3.6-5.0 MMOL/L Chloride Level 98 98-107 MMOL/L Carbon Dioxide Level 27 21-32 MMOL/L Anion Gap 11 5-14 MMOL/L Blood Urea Nitrogen 9 7-18 MG/DL Creatinine 1.31 H 0.60-1.30 MG/DL Estimat Glomerular Filtration Rate 41 BUN/Creatinine Ratio 7 Glucose Level 158 H 70-105 MG/DL Calcium Level 9.3 8.5-10.1 MG/DL Corrected Calcium 9.3 8.5-10.1 MG/DL Magnesium Level 1.3 L 1.6-2.4 MG/DL Total Bilirubin 0.9 0.1-1.0 MG/DL Aspartate Amino Transf (AST/SGOT) 21 5-34 U/L Alanine Aminotransferase (ALT/SGPT) 11 0-55 U/L Alkaline Phosphatase 121 40-136 U/L Troponin I < 0.30 <0.30 NG/ML Total Protein 7.1 6.4-8.2 GM/DL Albumin 4.0 3.2-4.5 GM/DL Lipase 15 8-78 U/L Serum Alcohol < 10 <10 MG/DL Influenza Type A (RT-PCR) Not Detected Not Detecte Influenza Type B (RT-PCR) Not Detected Not Detecte SARS-CoV-2 RNA (RT-PCR) Not Detected Not Detecte Urine Color YELLOW Urine Clarity CLEAR Urine pH 5.5 5-9 Urine Specific [place] <=1.005 1.016-1.022 Urine Protein NEGATIVE NEGATIVE Urine Glucose (UA) NEGATIVE NEGATIVE Urine Ketones NEGATIVE NEGATIVE Urine Nitrite NEGATIVE NEGATIVE Urine Bilirubin NEGATIVE NEGATIVE Urine Urobilinogen 0.2 < = 1.0 MG/DL Urine Leukocyte Esterase NEGATIVE NEGATIVE Urine RBC (Auto) NEGATIVE NEGATIVE Urine RBC NONE /HPF Urine WBC NONE /HPF Urine Squamous Epithelial Cells 5-10 /HPF Urine Crystals NONE /LPF Urine Bacteria NEGATIVE /HPF Urine Casts NONE /LPF Urine Mucus NEGATIVE /LPF Urine Culture Indicated NO My Orders Orders - AYON,JAMES L DO Ed Iv/Invasive Line Start (04/06/23 17:43) Ekg Tracing (04/06/23 17:43) Monitor-Rhythm Ecg Trace Only (04/06/23 17:43) Alcohol (04/06/23 17:43) Cbc And Automated Diff (04/06/23 17:43) Comprehensive Metabolic Panel (04/06/23 17:43) Lipase (04/06/23 17:43) Magnesium (04/06/23 17:43) Ua Culture If Indicated (04/06/23 17:43) Influenza A And B By Pcr (04/06/23 17:43) Troponin I Fs (04/06/23 17:43) Covid 19 Inhouse Test (04/06/23 17:43) Ct Head Wo (04/06/23 17:43) Ns Iv 1000 Ml (Ns Iv 1000 Ml) (04/06/23 17:43) Promethazine Injection (Promethazine I (04/06/23 17:52) Ed Iv/Invasive Line Start (04/06/23 19:17) Ns Iv 500 Ml (Ns Iv 500 Ml) (04/06/23 19:30) Ns Iv 500 Ml (Ns Iv 500 Ml) (04/06/23 19:19) Medications Given in ED Current Medications Medications Dose Ordered Sig/Shiraz Route Start Time Stop Time Status Last Admin Dose Admin Sodium Chloride 500 ml @ 0 mls/hr Q0M ONCE IV 04/06/23 19:30 04/06/23 19:31 DC 04/06/23 19:28 0 MLS/HR Vital Signs/I&O Capillary Refill : Progress Note : Progress Note Patient's diagnostic studies were ordered reviewed and interpreted by me. Patient labs are at her baseline and better than our previous labs over the last couple years. Patient with a negative EKG, negative troponin, negative CT head. Patient's symptoms are consistent with a vasovagal response to vomiting. I suspect most of her symptoms are related to a grief reaction since her son just yesterday And possible gastroenteritis. Patient is feeling better, alert and ready be discharged home. Patient should follow with her primary care provider as needed return to the ER as needed she was stable upon discharge she has increased risk for morbidity mortality based on her social determinants of health ECG Initial ECG Impression Date: Apr 06, 2023 Initial ECG Impression Time: 17:52 Initial ECG Rate: 62 Initial ECG Rhythm: Normal Sinus Comment no acute changes or st elevation Diagnostic Imaging Diagonstic Imaging: CT Plain Films/CT/US/NM/MRI: head Comments ate of Exam:04/06/23 CT HEAD WO PROCEDURE: CT head without contrast. TECHNIQUE: Multiple contiguous axial images were obtained through the brain without the use of intravenous contrast. Auto Exposure Controls were utilized during the CT exam to meet ALARA standards for radiation dose reduction. INDICATION: Syncope and dizziness. COMPARISON is made with prior head CT from 03/17/2022. The ventricles and sulci are within normal limits. No sulcal effacement or midline shift is identified. No acute intra-axial or extra-axial hemorrhage is detected. Cisterns are patent. The visualized paranasal sinuses are clear. IMPRESSION: No acute intracranial process is detected. Departure Impression Primary Impression: Gastroenteritis, non-infectious Qualified Codes: K52.89 - Other specified noninfective gastroenteritis and colitis Additional Impressions: Grief reaction Vaso-vagal reaction Disposition: HOME, SELF-CARE Condition: Stable Departure-Patient Inst. Referrals: HUGH DEMPSEY APRN (PCP) Primary Care Physician [facility] (Family) Primary Care Physician Patient Instructions: Dealing With , Adult, Diarrhea in adolescents and adults, Vasovagal Response Add. Discharge Instructions: Drink plenty of fluids, get plenty of rest follow-up with your primary care provider as needed Scripts Ondansetron (Ondansetron Odt) 4 Mg Tab.rapdis 4 MG PO Q6H PRN for NAUSEA/VOMITING, #20 TAB 0 Refills Prov: JAMES AYON DO 04/06/23 JAMES AYON DO Apr 06, 2023 17:43
[2023-04-06] MEDS ORDERED: PROMETHAZINE INJ 25 MG/ML VIAL IVP STA (17:52)
[2023-04-06 17:53] LABS: BASOPHILS % (AUTO) 1 % (0-10); EOSINOPHILS # (AUTO) 0.1 10^3/uL (0.0-0.3); EOSINOPHILS % (AUTO) 2 % (0-10); HEMATOCRIT 37 % (35-52); HEMOGLOBIN 12.3 g/dL (11.5-16.0); LYMPHOCYTES # (AUTO) 0.9 10^3/uL (1.0-4.0); LYMPHOCYTES % (AUTO) 15 % (12-44); MEAN CORPUSCULAR HEMOGLOBIN 33 pg (25-34); MEAN CORPUSCULAR HGB CONC 33 g/dL (32-36); MEAN CORPUSCULAR VOLUME 99 fL (80-99); MONOCYTES # (AUTO) 0.9 10^3/uL (0.0-1.0); MONOCYTES % (AUTO) 15 % (0-12); NEUTROPHILS % (AUTO) 67 % (42-75); PLATELET COUNT 149 10^3/uL (130-400); WHITE BLOOD COUNT 5.9 10^3/uL (4.3-11.0)
--- NOTE | 2023-04-06 18:07 | Diagnostic Imaging Report ---
PROCEDURE: CT head without contrast. TECHNIQUE: Multiple contiguous axial images were obtained through the brain without the use of intravenous contrast. Auto Exposure Controls were utilized during the CT exam to meet ALARA standards for radiation dose reduction. INDICATION: Syncope and dizziness. COMPARISON is made with prior head CT from 03/17/2022. The ventricles and sulci are within normal limits. No sulcal effacement or midline shift is identified. No acute intra-axial or extra-axial hemorrhage is detected. Cisterns are patent. The visualized paranasal sinuses are clear. IMPRESSION: No acute intracranial process is detected. Dictated by: Dictated on workstation # [id number]
[2023-04-06 18:16] LABS: ALANINE AMINOTRANSFERASE 11 U/L (0-55); ALKALINE PHOSPHATASE 121 U/L (40-136); BILIRUBIN,TOTAL 0.9 MG/DL (0.1-1.0); BUN/CREATININE RATIO 7; CALCIUM 9.3 MG/DL (8.5-10.1); CARBON DIOXIDE 27 MMOL/L (21-32); CHLORIDE 98 MMOL/L (98-107); CREATININE SERUM 1.31 MG/DL (0.60-1.30); GFR ESTIMATED 41; GLUCOSE 158 MG/DL (70-105); MAGNESIUM 1.3 MG/DL (1.6-2.4); POTASSIUM 4.4 MMOL/L (3.6-5.0); SODIUM 136 MMOL/L (135-145); TOTAL PROTEIN 7.1 GM/DL (6.4-8.2)
[2023-04-06 18:17] LABS: LIPASE 15 U/L (8-78)
[2023-04-06] MEDS ORDERED: ONDA4TAB11 PO (19:03)
[2023-04-06] MEDS ORDERED: NS IV 500 ML 500 ML ONE (19:19)
[2023-04-06] MEDS ORDERED: NS IV 500 ML 500 ML IV ONE (19:30)
[2023-04-06 19:50] LABS: BILIRUBIN,URINE NEGATIVE (NEGATIVE); CLARITY,URINE CLEAR; COLOR,URINE YELLOW; GLUCOSE, URINE (UA) NEGATIVE (NEGATIVE); KETONES,URINE NEGATIVE (NEGATIVE); LEUKOCYTE ESTERASE ,URINE NEGATIVE (NEGATIVE); NITRITE,URINE NEGATIVE (NEGATIVE); PH,URINE 5.5 (5-9); PROTEIN,URINE NEGATIVE (NEGATIVE)
[2023-04-06 19:54] LABS: BACTERIA,URINE NEGATIVE /HPF
[2023-04-07 10:39] VITALS: BP 136/62
== END 2023-04-06 20:31 | disposition home or self-care (01) ==
LOC: EDUNIT# 17:37 → ER FS 17:38
DX: K52.9 Noninfective gastroenteritis and colitis, unspecified (principal); F43.20 Adjustment disorder, unspecified; R55 Syncope and collapse; Z20.822 Contact with and (suspected) exposure to COVID-19
CPT/HCPCS: 36415; 70450; 80053; 81000; 83690; 83735; 84484; 85025; 87636; 93005; 93041; 99284; G0480; 80320